=== PATIENT | female | born 1960 | race Caucasian/White ===

== ENCOUNTER 2019-09-18 10:48 | Outpatient (CLI) | payer OTHER, SELFPAY ==
--- NOTE | 2019-09-18 11:00 | US_ITS ---
WS: [id number] ULTRASOUND SOFT TISSUES RIGHT foot HISTORY: LESION OF PLANTAR NERVE,R LOWER LIMB COMPARISON: LEFT for comparison. TECHNIQUE: 2-D and color Doppler imaging is submitted. Ultrasound images of performed on the plantar surface of the foot with compression along the interdig ital spaces. Patient's is symptomatic between the third and fourth metatarsal heads. There is a very subtle area o f decreased echogenicity which is asymmetric to the remaining interdigital spaces of the RIGHT foot. Very slight decreased measuring about 4 mm. This is a typical location for Jolley's neuroma. It is no t quite as conspicuous as normally seen. This is also asymmetric to the interdigital nerve of the LEF T foot. There is no evidence for bursitis. US/US soft tissue/extremity 22005 IMPRESSION: Suspicious but not diagnostic for Jolley's neuroma between the third and fourth metatarsal heads. There is some very mild thickening and decreased echogenici ty measuring about 4 mm. Typically Jolley's neuroma is more obvious than this. Please note this is asymmetric to the second and third interdigital nerve and t he interdigital nerves of the LEFT foot.
== END 2019-09-18 10:49 | disposition home or self-care (01) ==
PROVIDERS: Family Provider Family Medicine; PCP Family Medicine; Visit Provider Podiatrist Foot & Ankle Surgery
DX: G57.61 Lesion of plantar nerve, right lower limb (principal)
CPT/HCPCS: 76882

== ENCOUNTER 2019-10-15 11:18 | Outpatient (CLI) | payer OTHER, SELFPAY | END 2019-10-15 11:19 | disposition home or self-care (01) | LOC: SPT 11:19 | PROVIDERS: Family Provider Family Medicine; PCP Family Medicine; Visit Provider Podiatrist Foot & Ankle Surgery | DX: G57.61 Lesion of plantar nerve, right lower limb (principal) | CPT/HCPCS: L4361 ==

== ENCOUNTER 2019-11-14 05:50 | Day surgery (SDC) | payer OTHER, SELFPAY ==
[2019-11-13 12:29] VITALS: BMI 25.8
--- NOTE | 2019-11-14 05:55 | ANES.PREANE2 ---
Pre-Anesthetic Assessment Pre-Anesthetic Assessment: Height/Weight: Height 1.7 m Weight 74.843 kg Proposed Procedure: Operation Date: 11/14/19 07:00 Proposed Procedures p Neuroma Excision right foot third metatarsal interspace Z98.890 G57.61(Right) - Wilner Man DPM Social: Social History: No alcohol and No tobacco Exam: Pre-Anes Outpt Exam: alert, oriented x 3, clear to auscultation bilaterally and regular rate & rhythm Airway: Submandibular: WNL Cervical ROM: WNL MP: 1 Dentition: Other (teeth ok) History/ROS: No significant history except as noted Pulmonary: Pulmonary: None reported CV/HEM: CV/HEM: None reported : : None reported Hepatic: Hepatic: None reported GI: GI: None reported Metabolic: Metabolic: None reported Musc/skel: Musc/skel: None reported Neuropsych: Neuropsych: None reported Anesthetic Plan: ASA status: 1 Anesthesia: Anesthesia Evaluation and MAC Risk of > 500 ml blood loss (7ml/kg in children): No PFSH Anesthesia PFSH: Medical History 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 Surgical History History of hysterectomy Hx of appendectomy Family History Other CAD (coronary artery disease) Family history of premature coronary artery disease Hypertension Stroke Denies family history of Diabetes Clotting disorder Dementia Hyperlipidemia Psychiatric illness Chronic kidney disease (CKD) Suicide Anesthesia complication Bleeding disorder Lung disease Cancer Social History Smoking and tobacco status: never smoked Second hand smoke exposure: Yes Alcohol intake: never Adopted: No Lives independently: Yes Household members: spouse Housing: House Marital status: Data Anesthesia Cardiac Studies: No Data to Display
[2019-11-14 06:07] VITALS: BP 137/93; PULSE 73; RESP 18; TEMP 36.5; O2SAT 100
[2019-11-14] MEDS: sodium chloride 0.9% 1,000 ML 30 ML IV (06:13)
--- NOTE | 2019-11-14 06:43 | P.HPUD_ITS ---
Surgery/Procedure H&P Update DATE OF PROCEDURE: November 14, 2019 DATE H&P PERFORMED: 10/15/19 H&P UPDATE INFORMATION: I have reviewed H&P completed within last 30 days, I have examined patient prior to procedure, No changes to prior documentation and H&P is in [facility] on date indicated PREOP DIAGNOSIS: Jolley's neuroma right foot third intermetatarsal space PLANNED PROCEDURE: Operation Date: 11/14/19 07:00 Proposed Procedures p Neuroma Excision right foot third metatarsal interspace Z98.890 G57.61(Right) - Wilner Man DPM
[2019-11-14 07:50] VITALS: BP 145/83; PULSE 53; RESP 16; TEMP 36.2; O2SAT 100
[2019-11-14 08:03] VITALS: BP 156/82; PULSE 50; RESP 16; O2SAT 100
[2019-11-14 08:35] VITALS: BP 148/82; PULSE 50; RESP 18; O2SAT 99
--- NOTE | 2019-11-14 11:53 | PM.OP ---
Operative Report Date of procedure: November 14, 2019 Pre-op Diagnosis: Jolley's neuroma right foot third intermetatarsal space Brief History: Ms. Graves is a pleasant 59-year-old female who has had chronic pain secondary to Jolley's neuroma right foot third intermetatarsal space having failed conservative treatment for greater than 1 year consisting of wide accommodative shoes, orthotics, metatarsal pad, stretching exercises, cortisone injection and oral anti-inflammatories. She has pain while standing and walking. She works at [employer] and is on her feet for extended periods of time. Her right foot pain continues to affect her ability to carry out her job comfortably as well as every day life. She is wanting to proceed with neuroma excision. Procedure: SURGEON: Wilner Man DPM SIGNALING DESIGN ENGINEER: Millie PRE OP: Neuroma right foot POST OP: Same PROCEDURE: Excision of neuroma right foot PATHOLOGY: Neuroma specimen right foot ANESTHESIA: Local MAC HEMOSTASIS: Well padded ankle tourniquet set at 250mmHg on the right ankle. EBL: 2 mL MATERIALS: 3-0 Prolene INJECTABLES: 11 cc of 0.5% Marcaine plain preoperatively in a ray block right foot as well as posterior tibial nerve block, right. COMPLICATIONS: None PROCEDURE IN DETAIL Patient was brought to the operating room and placed on the operating room in table in the supine position. A timeout was performed. Anesthesia was administered by the anesthesia service, local anesthesia was administered as stated above. Foot was then prepped, draped and scrubbed in the usual aseptic fashion. Foot was then exsanguinated with an esmarch bandage and tourniquet was inflated to 250mmHg. Attention was directed to the right plantar forefoot where a linear longitudinal incision was made with a #15 blade at the plantar aspect of the right third intermetatarsal space through skin and down to fat layer. Care was taken to retract and preserve all neurovascular and tendinous structures. All bleeders were ligated and cauterized as necessary. Self-retaining retractor was utilized and blunt dissection was carried down through fat layer utilizing curved mosquito hemostats. The common plantar digital nerve at the third intermetatarsal space was directly visualized, of note there was a bulbous thickening consistent with a Jolley's neuroma just proximal to its bifurcation, this bulbous thickening was at the level of the weightbearing surface of the metatarsal parabola. The nerve was identified and transected at its most distal and proximal margins. Care was taken to retract proximally and transected nerve at its most proximal margin this was approximately 3 cm proximal to the weightbearing surface of the metatarsal parabola. The specimen was passed from the operative field and sent to pathology for review. Incision site was dressed with copious amounts of sterile saline solution. Following saline flush skin closure was performed utilizing 3-0 Prolene with alternating simple interrupted and horizontal mattress sutures. 10 cc of Exparel was introduced throughout the incision subcutaneously at the margin medially and laterally per dentistry teacher recommendation and package insert. The Incision sites was dressed with Adaptic, sterile 4 x 4, Kerlix and Niles wrap. The tourniquet was released and prompt hyperemic response was noted to all digits. The patient tolerated the anesthesia and procedure well. Patient was transferred to the PACU with vital signs stable and vascular status intact to the lower extremity. Cam boot was applied to the right lower extremity. Patient was educated on the importance of elevating her right foot while at rest. She is to be nonweightbearing with crutches for the next 2 weeks. Was given a prescription for Percocet 7.5/325 mg to be taken judiciously as prescribed. She was also provided my cell number and is to contact me with any postoperative questions or concerns.
== END 2019-11-14 09:05 | disposition home or self-care (01) ==
PROVIDERS: Family Provider Family Medicine; PCP Family Medicine; Visit Provider Podiatrist Foot & Ankle Surgery
PROC: (CPT 28080; principal; 2019-11-14 07:00)
DX: D36.13 Benign neoplasm of peripheral nerves and autonomic nervous system of lower limb, including hip (principal); Z82.49 Family history of ischemic heart disease and other diseases of the circulatory system; Z82.3 Family history of stroke
CPT/HCPCS: 28080; 12345; C9290; J0690; J2001; J2704; J3490; J7030

== ENCOUNTER 2019-12-23 11:20 | Outpatient (CLI) | payer OTHER, SELFPAY | END 2019-12-23 11:21 | disposition home or self-care (01) | LOC: SPT 11:22 | PROVIDERS: Family Provider Family Medicine; PCP Family Medicine; Visit Provider Podiatrist Foot & Ankle Surgery | DX: Z46.89 Encounter for fitting and adjustment of other specified devices (principal); G57.61 Lesion of plantar nerve, right lower limb | CPT/HCPCS: L3031 ==

== ENCOUNTER 2020-01-12 12:42 | Outpatient (CLI) | payer OTHER, SELFPAY | END 2020-01-12 12:43 | disposition home or self-care (01) | LOC: SPT 12:42 | PROVIDERS: Family Provider Family Medicine; PCP Family Medicine; Visit Provider Podiatrist Foot & Ankle Surgery | DX: Z46.89 Encounter for fitting and adjustment of other specified devices (principal); G57.61 Lesion of plantar nerve, right lower limb | CPT/HCPCS: L3030 ==

== ENCOUNTER 2020-07-12 06:00 | Outpatient (RCR) | payer OTHER, SELFPAY | END 2020-07-26 23:59 | disposition home or self-care (01) | LOC: SPT 06:00 | PROVIDERS: PCP Family Medicine; Referring Provider Family Medicine; Visit Provider Family Medicine | DX: M75.101 Unspecified rotator cuff tear or rupture of right shoulder, not specified as traumatic (principal) | CPT/HCPCS: 97110; 97161 ==

== ENCOUNTER 2020-07-27 06:00 | Outpatient (RCR) | payer OTHER, SELFPAY | END 2020-08-26 23:59 | disposition home or self-care (01) | LOC: SPT 06:00 | PROVIDERS: PCP Family Medicine; Referring Provider Family Medicine; Visit Provider Family Medicine | DX: M75.101 Unspecified rotator cuff tear or rupture of right shoulder, not specified as traumatic (principal) | CPT/HCPCS: 97110 ==

== ENCOUNTER → 2023-03-22 07:49 | Outpatient (BNVA) | payer OTHER, SELFPAY | PROVIDERS: PCP Family Medicine; Visit Provider Podiatrist Foot & Ankle Surgery | DX: M76.61 Achilles tendinitis, right leg (principal); M24.571 Contracture, right ankle; M77.51 Other enthesopathy of right foot and ankle | CPT/HCPCS: 73630 ==

== ENCOUNTER 2023-04-24 08:01 | Outpatient (RCR) | payer OTHER, SELFPAY | END 2023-04-26 23:59 | disposition home or self-care (01) | LOC: SPT 08:01 | PROVIDERS: Visit Provider Podiatrist Foot & Ankle Surgery | DX: M76.61 Achilles tendinitis, right leg (principal) | CPT/HCPCS: 97110; 97161 ==

== ENCOUNTER 2023-04-27 06:00 | Outpatient (RCR) | payer OTHER, SELFPAY | END 2023-05-26 23:59 | disposition home or self-care (01) | LOC: SPT 06:00 | PROVIDERS: Visit Provider Podiatrist Foot & Ankle Surgery | DX: M76.61 Achilles tendinitis, right leg (principal) | CPT/HCPCS: 97033; 97110; 97140 ==

== ENCOUNTER 2023-07-31 12:19 | Outpatient (CLI) | payer OTHER, SELFPAY ==
[2023-07-31 12:46] LABS: Basophils % 0.7 %; Eosinophils % 0.7 %; Hematocrit 37.4 % (36-47); Lymphocytes # 1.6 10^3/uL (0.8-4.8); Lymphocytes % 53.6 %; Mean Platelet Volume 10.8 fL (7.4-10.4); Monocytes # 0.3 10^3/uL (0.2-0.9); Monocytes % 8.5 %; Neutrophils # 1.08 10^3/uL (1.8-7.7); Neutrophils % 36.5 %; Nucleated Red Blood Cells % 0 %; Platelet Count 191 10^3/cmm (157-399); Red Cell Distribution Width 15.2 % (12.1-15.1); White Blood Count 2.95 10^3/uL (3.29-11.43)
[2023-07-31 13:16] LABS: Alanine Aminotransferase 32 U/L (0-33); Albumin Level 4.2 g/dL (3.5-5.2); Alkaline Phosphatase 115 U/L (35-105); Aspartate Amino Transferase 31 U/L (0-32); Blood Urea Nitrogen 15 mg/dL (8-23); Carbon Dioxide 23 mmol/L (22-29); Chloride 104 mmol/L (98-107); Globulin 2.5 g/dL (1.3-4.6); Glomerular Filtration Rate 72.4 mL/min (90-130); Glucose 108 mg/dL (65-115); Osmolality Calculated 289 mOsm/kg (285-295); Sodium 139 mmol/L (136-145); Thyroid Stimulating Hormone 0.91 uIU/mL (0.27-4.20); Total Bilirubin 0.3 mg/dL (0.15-1.2); Total Protein 6.7 g/dL (6.6-8.7)
== END 2023-07-31 12:20 | disposition home or self-care (01) ==
LOC: LAB 12:22
PROVIDERS: PCP Family Medicine; Visit Provider Family Medicine
DX: I10 Essential (primary) hypertension (principal)
CPT/HCPCS: 36415; 80053; 84443; 85025

== ENCOUNTER → 2024-02-14 15:41 | Outpatient (BNVA) | payer OTHER, SELFPAY | PROVIDERS: PCP Family Medicine; Visit Provider Family Medicine | DX: R06.00 Dyspnea, unspecified (principal); R60.9 Edema, unspecified; R07.9 Chest pain, unspecified; E11.9 Type 2 diabetes mellitus without complications; I10 Essential (primary) hypertension | CPT/HCPCS: 80053; 83880; 84443; 85025 ==

== ENCOUNTER 2024-03-06 07:18 | Outpatient (CLI) | payer OTHER, SELFPAY ==
--- NOTE | 2024-03-06 07:55 | ECG_ITS ---
[facility] Test Date: 2024-03-06 Pat Name: Jennifer Gutierres Department: Room: Gender: Female [employer] L[employer]: : 1960 Requested By: Deon Renee Order Number: [id number] Reading MD: Interpretive Statements Lung unchanged pre/post procedure; Intraprocedure shortess of breath; Symptoms resoled by discharge [id number]
--- NOTE | 2024-03-06 08:03 | NMCV_ITS ---
NM jennyfer perf SPECT r/s* [id number] Jennifer Gutierres Age: 64 Gender: F : 1960 Exam Date: 03/06/2024 08:24 Ordering Phys: Deon Pizano MD Technologist: SARAH Antonio Exam Location: [facility] Indications: SOB on exertion STRESS TEST Please see separate stress test report in [facility] for full findings IMAGE PROTOCOL Rest/Stress 1 Exercise Day Radiopharmaceutical Dose (mCi) Administration Site Administered by Rest: Tc-99m 10.8 IV SARAH Antonio Sestamibi Stress:Tc-99m 32.8 IV SARAH Antonio Sestamibi Rest: 06-Mar-2024 60 Discovery 630 Stress: 06-Mar-2024 30 Discovery 630 Radiopharmaceutical was injected at 84 % maximum heart rate. Images obtained in supine and prone position. SPECT RESULTS Technical Quality: Good Raw Data Analysis: Normal Image Corrections: No attenuation or motion correction applied Summed Stress Score: 0 Summed Rest Score: 0 Summed Difference Score: 0 PERFUSION FINDINGS SPECT images demonstrate homogeneous tracer distribution throughout the myocardium. FUNCTIONAL RESULTS (calculated via Gated SPECT) Stress Image LV EF (%): 83 Stress EDV (mL):71 TID: 0.9 Stress ESV (mL):12 FUNCTIONAL FINDINGS: There is normal left ventricular systolic function. IMPRESSIONS 1. Normal myocardial perfusion imaging with no evidence of ischemia 2. LV systolic function is normal Darrian Fan MD (Electronically Signed) Final Date: 07 March 2024 08:59 S
[2024-03-06 08:06] VITALS: BMI 31.3
[2024-03-06 09:48] VITALS: BP 99/67; PULSE 79
== END 2024-03-06 07:19 | disposition home or self-care (01) ==
PROVIDERS: PCP Family Medicine; Visit Provider Family Medicine
DX: R07.9 Chest pain, unspecified (principal); R06.00 Dyspnea, unspecified; R60.9 Edema, unspecified
CPT/HCPCS: 36415; 78452; 93017; A9500

== ENCOUNTER 2024-06-26 07:18 | Outpatient (CLI) | payer OTHER, SELFPAY ==
--- NOTE | 2024-06-26 07:37 | XR_ITS ---
WS: [id number] Chest 2 views, 06/26/2024 Clinical Data: dyspnea Comparison: Two-view chest, 03/27/2019 Findings: No nodules, masses or effusions are seen. The heart is normal. The pulmonary vascularity is not increased. No pneumonia or pneumothorax is seen. There is a prominent right cardio phrenic fat p ad or cyst. XR/XR chest 2V* [id number] Impression: Negative chest.
== END 2024-06-26 07:19 | disposition home or self-care (01) ==
PROVIDERS: PCP Family Medicine; Visit Provider Family Medicine
DX: R07.9 Chest pain, unspecified (principal); R06.00 Dyspnea, unspecified; R93.89 Abnormal findings on diagnostic imaging of other specified body structures
CPT/HCPCS: 71046

== ENCOUNTER 2024-07-08 08:00 | Outpatient (CLI) | payer OTHER, SELFPAY ==
--- NOTE | 2024-07-08 08:00 | CT_ITS ---
WS: [id number] CT chest w con* [id number] HISTORY: Worsening chest pain and shortness of breath TECHNIQUE: Axial imaging performed through the thorax. Coronal and sagittal reformats are submitted. All CT scans at [facility] use at least one of these dose optimization techniques: automated exposure control; mA and/or kV adjustment per patient size (includes targeted exams where dose is mat ched to clinical indication); or iterative reconstruction. CONTRAST: Omnipaque 350; 100 mL IV. DLP: 356.84 mGy.cm COMPARISON: 07/30/2015, chest radiograph 06/26/2024 Lungs and central airway: Normal. Pleura: Normal. No pleural effusion. Heart and pericardium: Normal size heart with no pericardial effusion. Mediastinum and shaheen: No mediastinum or hilar adenopathy. Vessels: Normal size aortic and pulmonary artery. No coronary artery calcifications. Chest wall and lower neck: No soft tissue masses. Upper abdomen: Moderate size hiatal hernia. Visualized liver is negative. Solid mass posterior upper pole RIGHT kidney measures 2.2 x 2.3 cm. No adrenal mass. Osseous structures: No destructive process. CT/CT chest w con* [id number] IMPRESSION: 1. No pulmonary mass or pneumonia. Normal appearance to both lungs. 2. No mediastinal or hilar adenopathy. 3. Moderate size hiatal hernia. 4. Solid mass posterior upper pole RIGHT kidney measures 2.2 x 2.3 cm needs to be further evaluated to exclude renal cell neoplasm. This mass should be furth er evaluated by renal mass CT or MRI protocols with and without contrast.
[2024-07-08 08:35] LABS: Blood Urea Nitrogen 18 mg/dL (8-23); Glomerular Filtration Rate 55.8 mL/min (90-130)
[2024-07-08] MEDS: iohexol 350 mg/mL 500 mL Btl (per mL) IV (08:40)
== END 2024-07-08 08:01 | disposition home or self-care (01) ==
PROVIDERS: PCP Family Medicine; Visit Provider Family Medicine
DX: D41.01 Neoplasm of uncertain behavior of right kidney (principal); K44.9 Diaphragmatic hernia without obstruction or gangrene; R07.9 Chest pain, unspecified; R06.00 Dyspnea, unspecified
CPT/HCPCS: 71260; 82565; 84520

== ENCOUNTER 2024-07-11 09:36 | Outpatient (CLI) | payer OTHER, SELFPAY ==
--- NOTE | 2024-07-11 09:30 | MRR_ITS ---
PROCEDURE INFORMATION: Exam: MR Abdomen Without and With Contrast Exam date and time: 07/11/2024 10:00 AM Age: 64 years old Clinical indication: Abnormal findings; Abnormal radiologic finding of the abdomen; Radiologic exam and body structure: Renal mass; Additional info: F/u on renal mass, specifically renal mri with renal mass protocol. TECHNIQUE: Imaging protocol: Magnetic resonance imaging of the abdomen without and with contrast. COMPARISON: CT chest w con* [id number] 07/08/2024 8:31 AM FINDINGS: Diaphragm: There is a small hiatal hernia evident. Liver: No mass. Gallbladder and biliary ducts: Unremarkable. No stones. No ductal dilation. Pancreas: Unremarkable. No ductal dilation. Spleen: Unremarkable. No splenomegaly. Adrenal glands: Unremarkable. No mass. Kidneys: 2.4 x 2.0 cm upper pole cyst right kidney containing a few internal thin septations and appears to minimally enhance following contrast administration. Although findings would favor a benign etiology the subtle enhancement renders the lesion indeterminate. Kidneys are otherwise unremarkable. Stomach and bowel: Visualized stomach and intestines are unremarkable. Intraperitoneal space: No free fluid. Vasculature: No abdominal aortic aneurysm. Lymph nodes: No enlarged nodes. Bones/joints: Unremarkable. No suspicious lesions. Soft tissues: Unremarkable. MR/MR abdomen wo/w con* [id number] IMPRESSION: 2.4 cm slightly complex right renal cyst demonstrating minimal enhancement following contrast administration, indeterminate. Recommend periodic ultrasound surveillance beginning with baseline study at this time.
[2024-07-11] MEDS: gadobenate dimeglumine 20 mL vial 19 ML IV (10:20)
== END 2024-07-11 09:37 | disposition home or self-care (01) ==
LOC: RAD 09:37
PROVIDERS: PCP Family Medicine; Visit Provider Family Medicine
DX: N28.1 Cyst of kidney, acquired (principal); N28.89 Other specified disorders of kidney and ureter
CPT/HCPCS: 74183; A9577

== ENCOUNTER → 2025-03-04 07:26 | Outpatient (BNVA) | payer MEDICARE, SELFPAY | PROVIDERS: PCP Family Medicine; Visit Provider Podiatrist Foot & Ankle Surgery | DX: M79.672 Pain in left foot (principal); M72.2 Plantar fascial fibromatosis | CPT/HCPCS: 73630; 99214 ==

== ENCOUNTER 2025-05-07 09:54 | Outpatient (CLI) | payer MEDICARE, SELFPAY | END 2025-05-07 09:55 | disposition home or self-care (01) | LOC: SPT 09:55 | PROVIDERS: PCP Family Medicine; Visit Provider Podiatrist Foot & Ankle Surgery | DX: Z46.89 Encounter for fitting and adjustment of other specified devices (principal); M72.2 Plantar fascial fibromatosis | CPT/HCPCS: 99214; L4397 ==

== ENCOUNTER → 2025-07-07 07:55 | Outpatient (BNVA) | payer MEDICARE, SELFPAY | PROVIDERS: PCP Family Medicine; Visit Provider Podiatrist Foot & Ankle Surgery | DX: M72.2 Plantar fascial fibromatosis (principal); M76.60 Achilles tendinitis, unspecified leg; M24.572 Contracture, left ankle | CPT/HCPCS: 20550; 20551; 99214; J1100; J3301; J9999 ==